=== PATIENT | male | born 1965 | race Caucasian/White ===

== ENCOUNTER → 2019-12-04 08:32 | Outpatient (CLI) | payer OTHER, SELFPAY ==
[2019-12-04 10:31] LABS: Hemoglobin A1C% w Est Avg Glu 7.6 % (4.0-6.0)
[2019-12-04 10:45] LABS: Alanine Aminotransferase 85 IU/L (<50); Albumin 4.4 g/dL (3.5-5.0); Albumin Globulin Ratio 1.5 (1.0-2.8); Alkaline Phosphatase 60 U/L (38-126); Aspartate Aminotransferase 70 IU/L (17-59); BUN Creatinine Ratio 22.2 (6-22); Bilirubin Total 0.7 mg/dL (0.2-1.3); Blood Urea Nitrogen 20 mg/dL (9-20); Calcium 10.3 mg/dL (8.4-10.2); Carbon Dioxide 22 mmol/L (22-32); Chloride 104 mmol/L (98-107); Cholesterol 192 mg/dL (140-199); Estimated Glomerular Filt Rate > 60.0 mL/min (>60); Glucose 197 mg/dL (70-100); HDL Cholesterol 32 mg/dL (40-60); HEMOLYSIS < 15 (0-50); LDL Cholesterol Calculated 85 mg/dL (<100); Potassium 4.2 mmol/L (3.4-5.1); Sodium 137 mmol/L (137-145); Total Protein 7.4 g/dL (6.3-8.2); Triglycerides 373 mg/dL (35-150)
== END ==
PROVIDERS: Family Provider Family Medicine; Referring Provider Internal Medicine; Visit Provider Internal Medicine
DX: I10 Essential (primary) hypertension (principal); E11.9 Type 2 diabetes mellitus without complications
CPT/HCPCS: 36415; 80053; 80061; 83036

== ENCOUNTER 2022-06-09 15:18 | Emergency (ER) | payer OTHER, SELFPAY ==
[2022-06-09 15:23] VITALS: BP 174/95; PULSE 92; RESP 18; TEMP 37.1; O2SAT 96; BMI 36.9
--- NOTE | 2022-06-09 15:28 | DI.RAD.S_ITS ---
PROCEDURE: XR CHEST 2V INDICATIONS: shortness of breath TECHNIQUE: 2 views of the chest were acquired. COMPARISON: None. FINDINGS: Surgical changes and devices: None. Lungs and pleura: Lungs are clear. No pleural effusions or pneumothorax. Mediastinum: Mediastinal contours are normal. Heart size is normal. Bones and chest wall: No suspicious bony abnormalities. Soft tissues appear unremarkable. IMPRESSION: No acute cardiopulmonary abnormality. Dictated by: Magnus Herrera M.D. on 06/09/2022 at 16:07 Approved by: Magnus Herrera M.D. on 06/09/2022 at 16:07
[2022-06-09 15:52] LABS: Add Manual Diff / Slide Review NO; Basophils Absolute Auto 100 /uL (0-100); Basophils Percent Auto 0.8 % (0-2); Eosinophils Absolute Auto 300 /uL (0-450); Eosinophils Percent Auto 4.4 % (2-4); Hematocrit 49.3 % (41-53); Hemoglobin 17.4 g/dL (13.5-17.5); Lymphocytes Absolute Auto 3000 /uL (1100-4500); Lymphocytes Percent Auto 38.3 % (25-40); Mean Corpuscular HGB Conc 35.3 % (30-36); Mean Corpuscular Volume 87.7 fL (80-100); Monocytes Absolute Auto 800 /uL (0-900); Monocytes Percent Auto 10.1 % (3-14); Neutrophils Absolute Auto 3600 /uL (1500-7000); Neutrophils Percent Auto 46.4 % (50-75); Platelet Count 215 X10^3/uL (150-400); Red Blood Cell Count 5.62 X10^6/uL (4.5-5.9); Red Cell Distribution Width 13.8 % (11.6-14.8); White Blood Cell Count 7.8 X10^3/uL (4.5-11.0)
[2022-06-09 15:59] LABS: Prothrombin Time 11.5 SECONDS (10.1-12.7)
[2022-06-09 16:04] LABS: Creatine Kinase 251 U/L (55-170)
[2022-06-09 16:08] LABS: Lactate (Lactic Acid) 2.5 mmol/L (0.7-2.1)
[2022-06-09 16:13] LABS: NT-proBNP (BNP-Adult 18+) 30 pg/mL (<125)
[2022-06-09 16:15] LABS: Troponin I < 0.012 ng/mL (0.01-0.034)
[2022-06-09 16:17] LABS: Alanine Aminotransferase 77 IU/L (<50); Albumin 4.9 g/dL (3.5-5.0); Albumin Globulin Ratio 1.5 (1.0-2.8); Alkaline Phosphatase 70 U/L (38-126); Aspartate Aminotransferase 53 IU/L (17-59); BUN Creatinine Ratio 18.9 (6-22); Bilirubin Total 0.8 mg/dL (0.2-1.3); Blood Urea Nitrogen 14 mg/dL (9-20); Calcium 10.7 mg/dL (8.4-10.2); Carbon Dioxide 21 mmol/L (22-32); Chloride 103 mmol/L (98-107); Estimated Glomerular Filt Rate > 60 mL/min (>60); Globulin 3.3 g/dL (1.7-4.1); Glucose 159 mg/dL (70-100); HEMOLYSIS 34 (0-50); Potassium 4.1 mmol/L (3.4-5.1); Sodium 137 mmol/L (137-145); Total Protein 8.2 g/dL (6.3-8.2)
[2022-06-09 16:19] LABS: CKMB % Relative Index 1.6 % (1.5-5.0); Creatine Kinase MB 3.99 ng/mL (<2.37)
[2022-06-09 16:35] VITALS: BP 142/88; PULSE 88; RESP 19; O2SAT 91
--- NOTE | 2022-06-09 16:39 | DI.CT.S_ITS ---
PROCEDURE: CT ANGIO CHEST PE PROTOCOL INDICATIONS: hypoxia recent covid TECHNIQUE: Helical axial CT of the chest was obtained after intravenous contrast injection utilizing an angiographic technique and reformatted in multiple planes. Radiation dose reduction was achieved utilizing automated exposure control and/or weight-based dosing. COMPARISON: None. FINDINGS: Image quality: Excellent. Pulmonary arteries: Pulmonary arteries are normal in size, and demonstrate no intraluminal filling defects to suggest central pulmonary embolism. Lungs and pleura: Lungs are clear. No pleural effusions or pneumothorax. Central and peripheral airways are patent. Mediastinum: Heart size is normal, without pericardial effusion. No mediastinal or hilar adenopathy. Thoracic aorta is normal in caliber and enhancement. Esophagus is normal in caliber. Small hiatal hernia. Bones and chest wall: No suspicious bony lesions. Ribs and thoracic spine appear intact throughout. Thyroid gland unremarkable. No axillary or supraclavicular adenopathy. Abdomen: Visualized upper abdominal solid organs appear normal in the early arterial phase of enhancement. IMPRESSION: Unremarkable CT angiogram of the chest. No evidence of pulmonary embolism, aortic aneurysm or dissection. No infiltrate. Approved by: Galileo Lauren M.D. on 06/09/2022 at 16:23
[2022-06-09 17:00] VITALS: PULSE 91; RESP 21; O2SAT 93
[2022-06-09 17:48] LABS: Reflexed Lactate in 2 Hours Y
--- NOTE | 2022-06-09 17:54 | ED.CHESTPAIN ---
HPI - Chest Pain General Chief Complaint: Chest Pain Stated Complaint: heart or lung issues, sent by Dr Quiroz Time Seen by Provider: 06/09/22 17:49 Source: patient Mode of arrival: Ambulatory Limitations: no limitations History of Present Illness HPI narrative: Patient is a 56 year old male who has history of hypertension presenting with chest discomfort. He says for last 4 days he started having some chest heaviness and discomfort while he walks. states that he is not a man who sits down he is always going. He has been taking care of her she just had a pacemaker placed. However over last 4 days he has been resting more. He has is that he needed to stop while he is walking and doing things. This is very atypical for him. He did recently have COVID on May 21. He said his symptoms were very mild he actually has tested negative even before his 10 days of quarantine were up. He was seen evaluated by a primary care provider today who was concerned for his symptoms and sent to the ED for further evaluation. thought that his symptoms are a little bit worse today he denies them. He denies any nausea or vomiting Related Data Allergies Allergy/AdvReac Type Severity Reaction Status Date / Time No Known Drug Allergies Allergy Verified 06/09/22 15:25 Review of Systems Review of Systems Narrative: GENERAL: Denies chills, fatigue, malaise, fever, sweats, travel HEENT: Denies sinus pain, ear pain, sore throat, difficulty swallowing, neck pain RESPIRATORY: Denies dyspnea, cough, wheezing, hemoptysis, sputum. CARDIOVASCULAR: See HPI GASTROINTESTINAL: Denies nausea, vomiting, abdominal pain, diarrhea, constipation, melena. : Denies dysuria, frequency, incontinence, hematuria, urinary retention, flank pain. MUSCULOSKELETAL: Denies weakness, joint pain, or bony pain SKIN: No rash, no erythema, no pruritus NEUROLOGIC: Denies weakness, dizziness, headache, numbness, change in speech, confusion PSYCHIATRIC: No concerning psychosocial issues. 12 point review of systems is negative except for those stated above and HPI Patient History Social History Smoking Status: Unknown if ever smoked Smoking Status: Unknown if ever smoked alcohol intake frequency: a few times a week Substance Use Type: does not use Exam Initial Vital Signs Initial Vital Signs: Vital Signs Temperature 98.7 F 06/09/22 15:23 Pulse Rate 92 H 06/09/22 15:23 Respiratory Rate 18 06/09/22 15:23 Blood Pressure 174/95 H 06/09/22 15:23 Pulse Oximetry 96 06/09/22 15:23 Oxygen Delivery Method 06/09/22 15:23 GENERAL: Alert pleasant 56-year-old male and in no acute distress. HEENT: Head atraumatic,EOMI, pupils reactive, face symmetric, moist mucous membranes CARDIOVASCULAR: Regular rate and rhythm without murmurs, rubs or gallops. RESPIRATORY: Breath sounds equal bilaterally, no wheezes rales or rhonchi. ABDOMEN: Soft, nontender. Normoactive bowel sounds all 4 quadrants. No guarding or rebound. EXTREMITIES: Normal range of motion, no clubbing or edema. Neurovascularly intact NEUROLOGICAL: Alert and oriented x4.Normal gait and speech. SKIN: Warm, dry, no laceration, no petechiae, no rashes or lesions. Scores HEART Score Heart Score history: Moderately Suspicious Heart Score EKG: Normal Heart Score Age: 45-64 years old Heart Score risk factors: 1-2 risk factors Heart Score troponin: < or = to normal limit Heart Score Total: 3 Course Orders Ordered: ED Orders 06/09/22 15:28 XR chest 2V Stat Measure peak expiratory flow ONCE RT Consult Eval and Treat Now 06/09/22 15:32 EKG-12 Lead Stat 06/09/22 15:35 Complete Blood Count AUTO DIFF Stat Comprehensive Metabolic Panel Stat Lactate (Lactic Acid) Stat NT-proBNP (BNP-Adult 18+) Stat Prothrombin Time INR Stat Troponin & CK Cardiac Panel Stat 06/09/22 16:39 CT angio chest PE protocol Stat Discontinued Medications Aspirin (Aspirin 81 Mg Chew Tab) 324 mg PO NOW ONE Stop: 06/09/22 18:35 Last Admin: 06/09/22 18:38 Dose: 324 mg Documented By: KF Vital Signs Vital signs: Vital Signs - 8 hr 06/09/22 15:23 06/09/22 16:35 06/09/22 16:35 Temperature 98.7 F Pulse Rate 92 H 88 Respiratory Rate 18 19 Blood Pressure 174/95 H 142/88 H Pulse Oximetry 96 91 Oxygen Delivery Method Room Air 06/09/22 17:00 06/09/22 17:57 06/09/22 18:00 Temperature Pulse Rate 91 H 87 87 Respiratory Rate 21 13 Blood Pressure Pulse Oximetry 93 98 95 Oxygen Delivery Method MDM - Chest Pain Lab Data Result diagrams: 06/09/22 15:35 06/09/22 15:35 Labs: Lab Results 06/09/22 06/09/22 06/09/22 Range/Units 15:35 15:35 15:35 WBC 7.8 (4.5-11.0) X10^3/uL RBC 5.62 (4.5-5.9) X10^6/uL Hgb 17.4 (13.5-17.5) g/dL Hct 49.3 (41-53) % MCV 87.7 (80-100) fL MCH 31.0 (26-34) PG MCHC 35.3 (30-36) % RDW 13.8 (11.6-14.8) % Plt Count 215 (150-400) X10^3/uL Neut % (Auto) 46.4 L (50-75) % Lymph % (Auto) 38.3 (25-40) % [place] % (Auto) 10.1 (3-14) % Eos % (Auto) 4.4 H (2-4) % Baso % (Auto) 0.8 (0-2) % Neut # (Auto) 3600 (6817-1437) /uL Lymph # (Auto) 3000 (4745-4408) /uL [place] # (Auto) 800 (0-900) /uL Eos # (Auto) 300 (0-450) /uL Baso # (Auto) 100 (0-100) /uL PT 11.5 (10.1-12.7) SECONDS INR 1.0 (0.9-1.3) Sodium 137 (137-145) mmol/L Potassium 4.1 (3.4-5.1) mmol/L Chloride 103 (98-107) mmol/L Carbon Dioxide 21 L (22-32) mmol/L BUN 14 (9-20) mg/dL Creatinine 0.74 (0.66-1.25) mg/dL Estimated GFR > 60 (>60) mL/min BUN/Creatinine Ratio 18.9 (6-22) Glucose 159 H (70-100) mg/dL Lactate (0.7-2.1) mmol/L Calcium 10.7 H (8.4-10.2) mg/dL Total Bilirubin 0.8 (0.2-1.3) mg/dL AST 53 (17-59) IU/L ALT 77 H (<50) IU/L Alkaline Phosphatase 70 (38-126) U/L Total Creatine Kinase (55-170) U/L CK-MB (CK-2) (<2.37) ng/mL CK-MB (CK-2) Rel Index (1.5-5.0) % Troponin I (0.01-0.034) ng/mL NT-Pro-B Natriuret Pep 30 (<125) pg/mL Total Protein 8.2 (6.3-8.2) g/dL Albumin 4.9 (3.5-5.0) g/dL Globulin 3.3 (1.7-4.1) g/dL Albumin/Globulin Ratio 1.5 (1.0-2.8) 06/09/22 06/09/22 Range/Units 15:35 15:35 WBC (4.5-11.0) X10^3/uL RBC (4.5-5.9) X10^6/uL Hgb (13.5-17.5) g/dL Hct (41-53) % MCV (80-100) fL MCH (26-34) PG MCHC (30-36) % RDW (11.6-14.8) % Plt Count (150-400) X10^3/uL Neut % (Auto) (50-75) % Lymph % (Auto) (25-40) % [place] % (Auto) (3-14) % Eos % (Auto) (2-4) % Baso % (Auto) (0-2) % Neut # (Auto) (8154-3926) /uL Lymph # (Auto) (3041-8295) /uL [place] # (Auto) (0-900) /uL Eos # (Auto) (0-450) /uL Baso # (Auto) (0-100) /uL PT (10.1-12.7) SECONDS INR (0.9-1.3) Sodium (137-145) mmol/L Potassium (3.4-5.1) mmol/L Chloride (98-107) mmol/L Carbon Dioxide (22-32) mmol/L BUN (9-20) mg/dL Creatinine (0.66-1.25) mg/dL Estimated GFR (>60) mL/min BUN/Creatinine Ratio (6-22) Glucose (70-100) mg/dL Lactate 2.5 H (0.7-2.1) mmol/L Calcium (8.4-10.2) mg/dL Total Bilirubin (0.2-1.3) mg/dL AST (17-59) IU/L ALT (<50) IU/L Alkaline Phosphatase (38-126) U/L Total Creatine Kinase 251 H (55-170) U/L CK-MB (CK-2) 3.99 H (<2.37) ng/mL CK-MB (CK-2) Rel Index 1.6 (1.5-5.0) % Troponin I < 0.012 (0.01-0.034) ng/mL NT-Pro-B Natriuret Pep (<125) pg/mL Total Protein (6.3-8.2) g/dL Albumin (3.5-5.0) g/dL Globulin (1.7-4.1) g/dL Albumin/Globulin Ratio (1.0-2.8) Imaging Data Chest x-ray: Radiologist's Impression: XRay Report Signed Patient: Remigio Goins MR#: [id number] : 1965 Acct:[id number] Age/Sex: 56 / M Date of Service: 06/09/22 Loc: ED Accession Number: [id number] ?? Procedure: XR chest 2V Ordering Provider: Jeannette Kerr D.O. PROCEDURE:? XR CHEST 2V ? INDICATIONS:? shortness of breath ? TECHNIQUE:? 2 views of the chest were acquired.? ? COMPARISON:? None. ? FINDINGS:? ? Surgical changes and devices:? None.? ? Lungs and pleura:? Lungs are clear.? No pleural effusions or pneumothorax.? ? Mediastinum:? Mediastinal contours are normal.? Heart size is normal.? ? Bones and chest wall:? No suspicious bony abnormalities.? Soft tissues appear unremarkable.? ? IMPRESSION:? No acute cardiopulmonary abnormality. ? ? ? Dictated by: Magnus Herrera M.D. on 06/09/2022 at 16:07 ? ? CT scan - chest: Radiologist's Impression: nt: Remigio Goins MR#: [id number] : 1965 Acct:[id number] Age/Sex: 56 / M Date of Service: 06/09/22 Loc: ED Accession Number: [id number] ?? Procedure: CT angio chest PE protocol Ordering Provider: Jeannette Kerr D.O. PROCEDURE:? CT ANGIO CHEST PE PROTOCOL ? INDICATIONS:? hypoxia recent covid ? TECHNIQUE:? Helical axial CT of the chest was obtained after intravenous contrast injection utilizing an angiographic technique and reformatted in multiple planes.? Radiation dose reduction was achieved utilizing automated exposure control and/or weight-based dosing. ? ? COMPARISON:? None. ? FINDINGS:? Image quality:? Excellent.? ? Pulmonary arteries:? Pulmonary arteries are normal in size, and demonstrate no intraluminal filling defects to suggest central pulmonary embolism.? ? Lungs and pleura:? Lungs are clear.? No pleural effusions or pneumothorax.? Central and peripheral airways are patent.? ? Mediastinum:? Heart size is normal, without pericardial effusion.? No mediastinal or hilar adenopathy.? Thoracic aorta is normal in caliber and enhancement.? Esophagus is normal in caliber.? Small hiatal hernia. ? Bones and chest wall:? No suspicious bony lesions.? Ribs and thoracic spine appear intact throughout.? Thyroid gland unremarkable.? No axillary or supraclavicular adenopathy.? ? Abdomen:? Visualized upper abdominal solid organs appear normal in the early arterial phase of enhancement.? ? IMPRESSION:? Unremarkable CT angiogram of the chest.? No evidence of pulmonary embolism, aortic aneurysm or dissection.? No infiltrate. ? ? ? Approved by: Galileo Lauren M.D. on 06/09/2022 at 16:23? ECG Data Interpretation: Normal sinus rhythm rate 90 p.r. interval 154 QRS [address] changes, no priors to compare Q-wave noted in lead 3 only MDM Narrative Medical decision making narrative: Patient's symptoms are definitely concerning for cardiac. But also possibly post COVID. Patient is pretty adamant that his symptoms are not COVID related he tested negative. He has a negative PE study. He was mildly hypoxic at 91% briefly but really is not consistent. Normal troponin. Normal BNP. He does have risk factors for coronary artery disease. He is offered multiple times to stay in the hospital for a stress test and monitoring. However both he and his decline. He has an appointment with a primary care provider tomorrow morning which he would like to go to and have an outpatient stress test. Patient has had symptoms ongoing for 4 days possibly worse today but not currently symptomatic. The patient is clinically sober, free from distracting injury, appears to have intact insight, judgment and reason. Does not meet criteria for involuntary hospitalization. Patient has the capacity to make decisions. The patient is also not under any duress to leave the hospital. In this scenario, it would be battery to subject the patient to treatment against his/her will. I have voiced my concerns for the patient's health given that a full evaluation and treatment had not occurred. I have discussed the need for continued evaluation to determine if there symptoms are caused by a condition that present risk of or morbidity. Risk including but not limited to , permanent disability, prolonged hospitalization, prolonged illness, were discussed. I tried offering alternative options in hopes that the patient might be amenable to partial evaluation and treatment which would be medically beneficial to the patient, though the patient declined my options and insisted on leaving. Because I have been unable to convince the patient to stay I answered all of their questions about the condition and ask them to return to the ED as soon as possible to complete their evaluation, especially if their symptoms worsen or do not improve. I emphasized that leaving against medical advice did not preclude returning here for further evaluation. I asked the patient to return if they change their mind about the further evaluation and treatment. I strongly encouraged the patient to return to this emergency department or any emergency department at any time, particularly with worsening symptoms. Discharge Plan Departure Patient Disposition: Home Clinical Impression: Chest pain Instructions: DI for Chest Pain Activity Restrictions/Additional Instructions: *You have been diagnosed with chest pain *What to do: You do need a stress test and echocardiogram. This needs to happen is very urgently. I am concerned that he may have underlying heart disease. Please talk to her PCP tomorrow about these test *Continue to take medications as directed Aspirin 81 mg once daily *Follow up with your primary care provider in 2-3 days or call [phone] *Return to ER if you should have chest discomfort shortness of breath chest pain or any new, worsening or concerning symptoms Visit Report Forms: Patient Portal/API
[2022-06-09 17:57] VITALS: PULSE 87; O2SAT 98
[2022-06-09 18:00] VITALS: PULSE 87; RESP 13; O2SAT 95
--- NOTE | 2022-06-09 18:00 | PC.NURSE ---
dr. armstrong at bedside
[2022-06-09] MEDS: ASPIRIN 81 MG CHEW TAB 324 MG PO (18:38)
== END 2022-06-09 18:56 | disposition home or self-care (01) ==
PROVIDERS: Emergency Provider Emergency Medicine; Family Provider Family Medicine
DX: R07.9 Chest pain, unspecified (principal); R09.02 Hypoxemia; Z86.16 Personal history of COVID-19
CPT/HCPCS: 36415; 71046; 71275; 80053; 82550; 82553; 83605; 83880; 84484; 85025; 85610; 93005; 99284; Q9967